=== PATIENT | male | born 1970 | race African-American/Black ===

== ENCOUNTER 2017-04-23 13:05 | Inpatient (IN) | payer OTHER ==
[2017-04-23 13:08] VITALS: BMI 26.1
--- NOTE | 2017-04-23 13:44 | HP ---
CIWA Score - CIWA Score Nausea/Vomitin Muscle Tremors: 3 Anxiety: 3 Agitation: 3 Paroxysmal Sweats: 2 Orientation: 0-Oriented Tacttile Disturbances: 2-Mild Itch/Numbness/Burn Auditory Disturbances: 2-Mild Harshness/Frighten Visual Disturbances: 2-Mild Sensitivity Headache: 0-None Present CIWA-Ar Total Score: 20 Admission ROS [facility] - HPI Chief Complaint: I NEED HELP TO STOP DRINKING ALCOHOL,COCAINE,MARIJUANA,HEROIN ABUSED Allergies/Adverse Reactions: Allergies Allergy/AdvReac Type Severity Reaction Status Date / Time No Known Allergies Allergy Verified 04/23/17 13:20 History of Present Illness: THIS 46 YEARS OLD MALE WITH ALCOHOL,COCAINE,MARIJUANA DEPENDENCE,HEROIN ABUSED, SEEKING DETOX,LAST TREATMENT 02/26 IN [place],NOT COMPLETED MULTIPLE TREATMENT IN THE PAST LOW BACK PAIN DEPRESSION AND INSOMNIA LONGEST PERIOD OF SOBRIETY 13 MONTHS - Ebola screening Have you traveled outside of the country in the last 21 days: No Have you had contact with anyone from an Ebola affected area: No Have you been sick,other than usual withdrawal symptoms: No Do you have a fever: No - Review of Systems Constitutional: Chills, Loss of Appetite, Malaise, Night Sweats, Changes in sleep, Weakness, Unintentional Wgt. Loss EENT: reports: No Symptoms Reported, Nose Congestion Respiratory: reports: No Symptoms reported Cardiac: reports: No Symptoms Reported GI: reports: Nausea, Poor Appetite, Vomiting, Abdominal cramping : reports: No Symptoms Reported Musculoskeletal: reports: Back Pain, Muscle Pain Integumentary: reports: Dryness Neuro: reports: Headache, Tremors Endocrine: reports: No Symptoms Reported Hematology: reports: No Symptoms Reported Psychiatric: reports: No Sypmtoms Reported, Judgement Intact, Mood/Affect Appropiate, Depressed (INSOMNIA) Patient History - Patient Medical History Hx Anemia: No Hx Asthma: No Hx Chronic Obstructive Pulmonary Disease (COPD): No Hx Cancer: No Hx Cardiac Disorders: No Hx Congestive Heart Failure: No Hx Hypertension: No Hx Hypercholesterolemia: No Hx Pacemaker: No HX Cerebrovascular Accident: No Hx Seizures: No Hx Dementia: No Hx Diabetes: No Hx Gastrointestinal Disorders: No Hx Liver Disease: No Hx Genitourinary Disorders: No Hx Sexually Transmitted Disorders: No Hx Renal Disease (ESRD): No Hx Thyroid Disease: No Hx Human Immunodeficiency Virus (HIV): No (LAST 2015 NEGATIVE) Hx Hepatitis C: No Hx Depression: Yes (INSOMNIA) Hx Suicide Attempt: No Hx Bipolar Disorder: No Hx Schizophrenia: No Other Medical History: INSPMNIA,NO SUICIDAL,NO HOMICIDAL - Patient Surgical History Past Surgical History: No Hx Orthopedic Surgery: Yes (FX OF LEFT ANKLE IN 1997) - PPD History Previous Implant?: Yes Documented Results: Negative w/o proof Implanted On Prior [facility] Admission?: No PPD to be Administered?: Yes - Smoking Cessation Smoking history: Current every day smoker Have you smoked in the past 12 months: Yes Aproximately how many cigarettes per day: 10 Hx Chewing Tobacco Use: No Initiated information on smoking cessation: Yes 'Breaking Loose' booklet given: 04/23/17 - Substance & Tx. History Hx Alcohol Use: Yes Hx Substance Use: Yes Substance Use Type: Alcohol, Cocaine, Marijuana Hx Substance Use Treatment: Yes (LAST IN 02/26 IN [place] NOT COMPLETED) - Substances Abused Alcohol Route: Oral Frequency: Daily Amount used: Nilda(1/2-1 pint)beer-3-4 25 oz cans Age of first use: 17 Date of Last Use: 04/23/17 Cocaine Route: Smoking Frequency: Daily Amount used: $40 Age of first use: 23 Date of Last Use: 04/22/17 Marijuana/Hashish Route: Smoking Frequency: 3-6 times per week Amount used: $20 Age of first use: 23 Date of Last Use: 04/22/17 Heroin Route: Inhalation Frequency: 1-3 times last 30 days Amount used: 1 bag Age of first use: 33 Date of Last Use: 04/16/17 Family Disease History - Family Disease History Family History: Denies Admission Physical Exam [facility] - Vital Signs Vital Signs: Vital Signs - 24 hr 04/23/17 13:05 Temperature 97.0 F L Pulse Rate 86 Respiratory 18 Rate Blood Pressure 143/86 - Physical General Appearance: Yes: Moderate Distress, Tremorous, Irritable, Sweating, Anxious HEENTM: Yes: Normal ENT Inspection, MICHELLE, Pharynx Normal, Tm's normal Respiratory: Yes: Lungs Clear, Normal Breath Sounds, No Respiratory Distress Neck: Yes: Within Normal Limits, Supple, Trachea in good position Breast: Yes: Within Normal Limits Cardiology: Yes: Within Normal Limits, Regular Rhythm, Regular Rate, S1, S2 Abdominal: Yes: Within Normal Limits, Normal Bowel Sounds, Non Tender, Flat, Soft Genitourinary: Yes: Within Normal Limits Back: Yes: Within Normal Limits, Muscle Spasm Musculoskeletal: Yes: Back pain, Muscle Pain Extremities: Yes: Tremors Neurological: Yes: hand flesher II-XII NML intact, Alert, Motor Strength 5/5 Integumentary: Yes: Dry Lymphatic: Yes: Within Normal Limits - Diagnostic (1) Alcohol dependence with uncomplicated withdrawal Current Visit: Yes Status: Acute (2) Cocaine dependence Current Visit: Yes Status: Acute Qualifiers: Substance use status: uncomplicated Qualified Code(s): F14.20 - Cocaine dependence, uncomplicated (3) Cannabis dependence Current Visit: Yes Status: Acute (4) Heroin abuse Current Visit: Yes Status: Acute (5) Low back pain Current Visit: Yes Status: Acute Qualifiers: Chronicity: chronic (6) Weight loss Current Visit: Yes Status: Acute (7) Nicotine dependence Current Visit: Yes Status: Acute Qualifiers: Nicotine product type: cigarettes Substance use status: in withdrawal Qualified Code(s): F17.213 - Nicotine dependence, cigarettes, with withdrawal (8) Insomnia secondary to depression with anxiety Current Visit: Yes Status: Acute (9) History of fracture of left ankle Current Visit: Yes Status: Chronic Cleared for Admission [facility] - Detox or Rehab [facility] Level of Care: Medically Managed Detox Regimen/Protocol: Librium [facility] Breath Alcohol Content Breath Alcohol Content: 0.023 Urine Drug Screen - Results Drug Screen Negative: No Urine Drug Screen Results: THC-Marijuana, ALBARO-Cocaine, BZO-Benzodiazepines
[2017-04-23] MEDS ORDERED: P-EPHED 60MG/TRIPROLIDI 2.5MG TABLET PO PRN (13:56)
[2017-04-23] MEDS ORDERED: IBUPROFEN 400 MG TABLET (FP) PO PRN (13:56)
[2017-04-23] MEDS ORDERED: MENTHOL/PHENOL 1 EACH UD MM PRN (13:56)
[2017-04-23] MEDS ORDERED: MAGNESIUM CITRATE 300 ML BOTTLE PO PRN (13:56)
[2017-04-23] MEDS ORDERED: chlordiazePOXIDE HCL 25 MG CAPSULE PO ONE (13:56)
[2017-04-23] MEDS ORDERED: hydrOXYzine PAMOATE 25 MG CAPSULE (FP) PO PRN (13:56)
[2017-04-23] MEDS ORDERED: MAG HYDROX/AL HYDROX/SIMETH 30 ML UNIT-DOSE CUP PO PRN (13:56)
[2017-04-23] MEDS ORDERED: guaiFENesin/D-METHORPHAN HB 10 ML UNIT-DOSE CUPS PO PRN (13:56)
[2017-04-23] MEDS ORDERED: chlordiazePOXIDE HCL 25 MG CAPSULE PO PRN (13:56)
[2017-04-23] MEDS ORDERED: ACETAMINOPHEN 325 MG TABLET (FP) PO PRN (13:56)
[2017-04-23] MEDS ORDERED: MAGNESIUM HYDROX 2400MG/30ML ORAL SUSPENSION 30 ML CUP PO PRN (13:56)
[2017-04-23] MEDS ORDERED: LOPERAMIDE HCL 2 MG CAPSULE PO PRN (13:56)
[2017-04-23] MEDS: NAPROXEN 500 MG TABLET (FP) PO SCH ×2 (14:56→22:15)
--- NOTE | 2017-04-23 15:36 | EKG ---
Test Reason : Blood Pressure : / mmHG Vent. Rate : 088 BPM Atrial Rate : 088 BPM P-R Int : 168 ms QRS Dur : 106 ms QT Int : 386 ms P-R-T Axes : 064 022 051 degrees QTc Int : 467 ms NORMAL SINUS RHYTHM POSSIBLE LEFT ATRIAL ENLARGEMENT BORDERLINE ECG NO PREVIOUS ECGS AVAILABLE Confirmed by KAYLA STUART MD ([id number]) on 04/23/2017 3:35:55 PM Referred By: Confirmed By:KAYLA STUART MD
[2017-04-23 16:28] LABS: URINE APPEARANCE CLEAR; URINE BILIRUBIN NEGATIVE (NEGATIVE); URINE BLOOD NEGATIVE (NEGATIVE); URINE COLOR YELLOW; URINE GLUCOSE (UA) NEGATIVE (NEGATIVE); URINE KETONE NEGATIVE (NEGATIVE); URINE NITRITE NEGATIVE (NEGATIVE); URINE PROTEIN NEGATIVE (NEGATIVE); URINE UROBILINOGEN NEGATIVE mg/dL (0.2-1.0)
[2017-04-23] MEDS: chlordiazePOXIDE HCL 25 MG CAPSULE PO SCH ×2 (17:32→22:15)
[2017-04-23 19:01] LABS: URINE LEUK ESTERASE Negative (NEGATIVE)
[2017-04-23] MEDS: THIAMINE HCL 100 MG TABLET (FP) PO SCH (22:14)
[2017-04-23] MEDS: cloNIDine HCL 0.1 MG TABLET PO SCH (22:15)
[2017-04-24] MEDS: chlordiazePOXIDE HCL 25 MG CAPSULE PO SCH ×4 (07:31→22:33)
[2017-04-24 09:56] LABS: MCH 29.3 pg (25.7-33.7); MCHC 32.9 g/dl (32.0-35.9); MEAN PLT VOLUME 10.5 fl (7.5-11.1); PLATELET COUNT 171 K/MM3 (134-434); RDW 14.3 % (11.9-15.9); WHITE BLOOD COUNT 5.6 K/mm3 (4.0-10.0)
[2017-04-24 10:23] LABS: ALBUMIN 3.5 g/dl (3.4-5.0); ALK PHOS 63 U/L (45-117); ANION GAP 7 (8-16); BILIRUBIN,TOTAL 0.7 mg/dL (0.2-1.0); CALCIUM 8.5 mg/dL (8.5-10.1); CO2 28 mmol/L (21-32); GLUCOSE,RANDOM 98 mg/dL (74-106); SGOT/AST 16 U/L (15-37); SGPT/ALT 26 U/L (12-78); TOT PROT 6.2 g/dl (6.4-8.2)
[2017-04-24] MEDS: cloNIDine HCL 0.1 MG TABLET PO SCH ×2 (10:23→22:33)
[2017-04-24] MEDS: NAPROXEN 500 MG TABLET (FP) PO SCH ×2 (10:23→22:32)
[2017-04-24] MEDS: PRENATAL VITAMINS W/ FOLIC ACID TABLET (FP) PO SCH (10:23)
[2017-04-24 11:16] LABS: HIV 1 & 2 AB NEGATIVE; HIV 1 AGp24 NEGATIVE
--- NOTE | 2017-04-24 11:17 | PN ---
[facility] CIWA - CIWA Score Nausea/Vomitin-No Nausea/No Vomiting Muscle Tremors: 4-Moderate,w/Arms Extend Anxiety: 4-Mod. Anxious/Guarded Agitation: 4-Moderately Restless Paroxysmal Sweats: 1-Minimal Palms Moist Orientation: 0-Oriented Tacttile Disturbances: 3-Moderate Itch/Numb/Burn Auditory Disturbances: 0-None Visual Disturbances: 0-None Headache: 0-None Present CIWA-Ar Total Score: 16 BHS Progress Note (SOAP) Subjective: ANXIETY,SWEATS,FATIGUE. Objective: 04/24/17 11:17 Vital Signs Temperature 96.7 F L 04/24/17 09:22 Pulse Rate 75 04/24/17 09:22 Respiratory Rate 18 04/24/17 09:22 Blood Pressure 114/72 04/24/17 09:22 O2 Sat by Pulse Oximetry (%) Laboratory Last Values WBC 5.6 K/mm3 (4.0-10.0) 04/24/17 07:00 RBC 4.93 M/mm3 (4.00-5.60) 04/24/17 07:00 Hgb 14.5 GM/dL (11.7-16.9) 04/24/17 07:00 Hct 43.9 % (35.4-49) 04/24/17 07:00 MCV 89.0 fl (80-96) 04/24/17 07:00 MCH 29.3 pg (25.7-33.7) 04/24/17 07:00 MCHC 32.9 g/dl (32.0-35.9) 04/24/17 07:00 RDW 14.3 % (11.9-15.9) 04/24/17 07:00 Plt Count 171 K/MM3 (134-434) 04/24/17 07:00 MPV 10.5 fl (7.5-11.1) 04/24/17 07:00 Sodium 140 mmol/L (136-145) 04/24/17 07:00 Potassium 4.3 mmol/L (3.5-5.1) 04/24/17 07:00 Chloride 105 mmol/L (98-107) 04/24/17 07:00 Carbon Dioxide 28 mmol/L (21-32) 04/24/17 07:00 Anion Gap 7 (8-16) L 04/24/17 07:00 BUN 19 mg/dL (7-18) H 04/24/17 07:00 Creatinine 1.0 mg/dL (0.7-1.3) 04/24/17 07:00 Creat Clearance w eGFR > 60 (>60) 04/24/17 07:00 Random Glucose 98 mg/dL (74-106) 04/24/17 07:00 Calcium 8.5 mg/dL (8.5-10.1) 04/24/17 07:00 Total Bilirubin 0.7 mg/dL (0.2-1.0) 04/24/17 07:00 AST 16 U/L (15-37) 04/24/17 07:00 ALT 26 U/L (12-78) 04/24/17 07:00 Alkaline Phosphatase 63 U/L (45-117) 04/24/17 07:00 Total Protein 6.2 g/dl (6.4-8.2) L 04/24/17 07:00 Albumin 3.5 g/dl (3.4-5.0) 04/24/17 07:00 Urine Color Yellow 04/23/17 15:30 Urine Appearance Clear 04/23/17 15:30 Urine pH 5.0 (5.0-8.0) 04/23/17 15:30 Ur Specific [place] 1.024 (1.001-1.035) 04/23/17 15:30 Urine Protein Negative (NEGATIVE) 04/23/17 15:30 Urine Glucose (UA) Negative (NEGATIVE) 04/23/17 15:30 Urine Ketones Negative (NEGATIVE) 04/23/17 15:30 Urine Blood Negative (NEGATIVE) 04/23/17 15:30 Urine Nitrite Negative (NEGATIVE) 04/23/17 15:30 Urine Bilirubin Negative (NEGATIVE) 04/23/17 15:30 Urine Urobilinogen Negative mg/dL (0.2-1.0) 04/23/17 15:30 Ur Leukocyte Esterase Negative (NEGATIVE) 04/23/17 15:30 RPR Titer Nonreactive (NONREACTIVE) 04/24/17 07:00 HIV 1&2 Antibody Screen Negative 04/24/17 07:00 HIV P24 Antigen Negative 04/24/17 07:00 Assessment: 04/24/17 11:17 WITHDRAWAL SX Plan: CONTINUE DETOX
--- NOTE | 2017-04-24 12:00 | CONSULT ---
[facility] Psychiatric Consult - Data Date of interview: 04/24/17 Admission source: [facility] Identifying data: Visited at bedside,on three occasions by this communications writer,for psychiatric interview.Patient REFUSED.
[2017-04-24] MEDS: THIAMINE HCL 100 MG TABLET (FP) PO SCH (22:32)
[2017-04-25] MEDS: CYCLOBENZAPRINE HCL 10 MG TABLET (FP) PO PRN ×2 (05:45→17:47)
[2017-04-25] MEDS: chlordiazePOXIDE HCL 25 MG CAPSULE PO SCH ×2 (05:45→10:11)
[2017-04-25] MEDS: cloNIDine HCL 0.1 MG TABLET PO SCH ×2 (10:10→22:21)
[2017-04-25] MEDS: NAPROXEN 500 MG TABLET (FP) PO SCH ×2 (10:11→22:21)
[2017-04-25] MEDS: PRENATAL VITAMINS W/ FOLIC ACID TABLET (FP) PO SCH (10:11)
--- NOTE | 2017-04-25 11:59 | PN ---
[facility] CIWA - CIWA Score Nausea/Vomitin-No Nausea/No Vomiting Muscle Tremors: 3 Anxiety: 4-Mod. Anxious/Guarded Agitation: 3 Paroxysmal Sweats: 3 Orientation: 0-Oriented Tacttile Disturbances: 2-Mild Itch/Numbness/Burn Auditory Disturbances: 0-None Visual Disturbances: 2-Mild Sensitivity Headache: 0-None Present CIWA-Ar Total Score: 17 S Progress Note (SOAP) Subjective: Tremors, Fatigue, Sweating, Body Aches. Objective: PT. A & O X 3, OBSERVED AMBULATING ON UNIT. NO ACUTE DISTRESS. 04/25/17 11:57 Vital Signs Temperature 95.3 F L 04/25/17 09:17 Pulse Rate 73 04/25/17 09:17 Respiratory Rate 18 04/25/17 09:17 Blood Pressure 111/74 04/25/17 09:17 O2 Sat by Pulse Oximetry (%) Laboratory Tests 04/23/17 04/24/17 04/24/17 15:30 07:00 07:00 WBC 5.6 RBC 4.93 Hgb 14.5 Hct 43.9 MCV 89.0 MCH 29.3 MCHC 32.9 RDW 14.3 Plt Count 171 MPV 10.5 Sodium Potassium Chloride Carbon Dioxide Anion Gap BUN Creatinine Creat Clearance w eGFR Random Glucose Calcium Total Bilirubin AST ALT Alkaline Phosphatase Total Protein Albumin Urine Color Yellow Urine Appearance Clear Urine pH 5.0 Ur Specific [place] 1.024 Urine Protein Negative Urine Glucose (UA) Negative Urine Ketones Negative Urine Blood Negative Urine Nitrite Negative Urine Bilirubin Negative Urine Urobilinogen Negative Ur Leukocyte Esterase Negative RPR Titer HIV 1&2 Antibody Screen Negative HIV P24 Antigen Negative 04/24/17 04/24/17 07:00 07:00 WBC RBC Hgb Hct MCV MCH MCHC RDW Plt Count MPV Sodium 140 Potassium 4.3 Chloride 105 Carbon Dioxide 28 Anion Gap 7 L BUN 19 H Creatinine 1.0 Creat Clearance w eGFR > 60 Random Glucose 98 Calcium 8.5 Total Bilirubin 0.7 AST 16 ALT 26 Alkaline Phosphatase 63 Total Protein 6.2 L Albumin 3.5 Urine Color Urine Appearance Urine pH Ur Specific [place] Urine Protein Urine Glucose (UA) Urine Ketones Urine Blood Urine Nitrite Urine Bilirubin Urine Urobilinogen Ur Leukocyte Esterase RPR Titer Nonreactive HIV 1&2 Antibody Screen HIV P24 Antigen LABS NOTED. Assessment: 04/25/17 11:58 WITHDRAWAL SYMPTOMS. Plan: CONTINUE DETOX. INCREASE DAILY PO FLUID INTAKE.
[2017-04-25] MEDS: chlordiazePOXIDE 5 MG CAPSULE PO SCH ×3 (17:29→22:21)
[2017-04-25] MEDS: THIAMINE HCL 100 MG TABLET (FP) PO SCH (22:21)
[2017-04-26] MEDS: chlordiazePOXIDE 5 MG CAPSULE PO SCH ×2 (06:00→10:40)
[2017-04-26] MEDS: NAPROXEN 500 MG TABLET (FP) PO SCH ×2 (10:40→22:08)
[2017-04-26] MEDS: cloNIDine HCL 0.1 MG TABLET PO SCH ×2 (10:40→22:08)
[2017-04-26] MEDS: PRENATAL VITAMINS W/ FOLIC ACID TABLET (FP) PO SCH (10:40)
--- NOTE | 2017-04-26 10:41 | PN ---
[facility] Progress Note (SOAP) Subjective: Tremors, Body Aches, Sweating. Objective: PT. A & O X 3, OBSERVED AMBULATING ON UNIT. NO ACUTE DISTRESS. 04/26/17 10:38 Vital Signs Temperature 97.0 F L 04/26/17 09:26 Pulse Rate 80 04/26/17 09:26 Respiratory Rate 20 04/26/17 09:26 Blood Pressure 130/72 04/26/17 09:26 O2 Sat by Pulse Oximetry (%) Laboratory Tests 04/23/17 04/24/17 04/24/17 15:30 07:00 07:00 WBC 5.6 RBC 4.93 Hgb 14.5 Hct 43.9 MCV 89.0 MCH 29.3 MCHC 32.9 RDW 14.3 Plt Count 171 MPV 10.5 Sodium Potassium Chloride Carbon Dioxide Anion Gap BUN Creatinine Creat Clearance w eGFR Random Glucose Calcium Total Bilirubin AST ALT Alkaline Phosphatase Total Protein Albumin Urine Color Yellow Urine Appearance Clear Urine pH 5.0 Ur Specific [place] 1.024 Urine Protein Negative Urine Glucose (UA) Negative Urine Ketones Negative Urine Blood Negative Urine Nitrite Negative Urine Bilirubin Negative Urine Urobilinogen Negative Ur Leukocyte Esterase Negative RPR Titer HIV 1&2 Antibody Screen Negative HIV P24 Antigen Negative 04/24/17 04/24/17 07:00 07:00 WBC RBC Hgb Hct MCV MCH MCHC RDW Plt Count MPV Sodium 140 Potassium 4.3 Chloride 105 Carbon Dioxide 28 Anion Gap 7 L BUN 19 H Creatinine 1.0 Creat Clearance w eGFR > 60 Random Glucose 98 Calcium 8.5 Total Bilirubin 0.7 AST 16 ALT 26 Alkaline Phosphatase 63 Total Protein 6.2 L Albumin 3.5 Urine Color Urine Appearance Urine pH Ur Specific [place] Urine Protein Urine Glucose (UA) Urine Ketones Urine Blood Urine Nitrite Urine Bilirubin Urine Urobilinogen Ur Leukocyte Esterase RPR Titer Nonreactive HIV 1&2 Antibody Screen HIV P24 Antigen LABS NOTED. Assessment: 04/26/17 10:39 WITHDRAWAL SYMPTOMS. Plan: CONTINUE DETOX. INCREASE DAILY PO FLUID INTAKE. ENCOURAGE AMBULATION. LIDODERM PATCH FOR LOWER BACK PAIN.
[2017-04-26] MEDS ORDERED: LIDOCAINE 5% TOPICAL PATCH TP ONE (10:58)
[2017-04-26] MEDS: chlordiazePOXIDE HCL 10 MG CAPSULE PO SCH ×2 (17:41→22:08)
[2017-04-26] MEDS ORDERED: LIDOCAINE PATCH REMOVAL MC SCH (22:00)
[2017-04-26] MEDS: THIAMINE HCL 100 MG TABLET (FP) PO SCH (22:08)
[2017-04-27] MEDS: chlordiazePOXIDE HCL 10 MG CAPSULE PO SCH (05:42)
[2017-04-27 06:24] VITALS: BP 110/62; PULSE 65; TEMP 97
--- NOTE | 2017-04-27 19:53 | DS ---
[facility] Detox Discharge Summary Admission Date: 04/23/17 Discharge Date: 04/27/17 - History Present History: Alcohol Dependence, Cannabis Dependence, Cocaine Dependence Additional Comments: PATIENT ADVISED TO CONSIDER LOCAL 12-STEP / NA / AA OUTPATIENT SUPPORT GROUPS FOR AFTERCARE. PATIENT WAS DISCHARGED FROM DETOX UNIT IN STABLE MEDICAL CONDITION. Pertinent Past History: Depression, Insomnia, History of Fracture of Left Ankle, Low Back Pain, Insomnia , Nicotine Dependence. - Physical Exam Results Vital Signs: Vital Signs Temperature 97 F L 04/27/17 06:24 Pulse Rate 65 04/27/17 06:24 Respiratory Rate 18 04/27/17 06:24 Blood Pressure 110/62 04/27/17 06:24 O2 Sat by Pulse Oximetry (%) Pertinent Admission Physical Exam Findings: WITHDRAWAL SYMPTOMS. Laboratory Tests 04/23/17 04/24/17 04/24/17 15:30 07:00 07:00 WBC 5.6 RBC 4.93 Hgb 14.5 Hct 43.9 MCV 89.0 MCH 29.3 MCHC 32.9 RDW 14.3 Plt Count 171 MPV 10.5 Sodium Potassium Chloride Carbon Dioxide Anion Gap BUN Creatinine Creat Clearance w eGFR Random Glucose Calcium Total Bilirubin AST ALT Alkaline Phosphatase Total Protein Albumin Urine Color Yellow Urine Appearance Clear Urine pH 5.0 Ur Specific [place] 1.024 Urine Protein Negative Urine Glucose (UA) Negative Urine Ketones Negative Urine Blood Negative Urine Nitrite Negative Urine Bilirubin Negative Urine Urobilinogen Negative Ur Leukocyte Esterase Negative RPR Titer HIV 1&2 Antibody Screen Negative HIV P24 Antigen Negative 04/24/17 04/24/17 07:00 07:00 WBC RBC Hgb Hct MCV MCH MCHC RDW Plt Count MPV Sodium 140 Potassium 4.3 Chloride 105 Carbon Dioxide 28 Anion Gap 7 L BUN 19 H Creatinine 1.0 Creat Clearance w eGFR > 60 Random Glucose 98 Calcium 8.5 Total Bilirubin 0.7 AST 16 ALT 26 Alkaline Phosphatase 63 Total Protein 6.2 L Albumin 3.5 Urine Color Urine Appearance Urine pH Ur Specific [place] Urine Protein Urine Glucose (UA) Urine Ketones Urine Blood Urine Nitrite Urine Bilirubin Urine Urobilinogen Ur Leukocyte Esterase RPR Titer Nonreactive HIV 1&2 Antibody Screen HIV P24 Antigen LABS NOTED. - Treatment Hospital Course: Detox Protocol Followed, Detoxed Safely, Responded well, Discharged Condition Good Patient has Accepted a Rehab Referral to: NO. PT ADVISED TO CONSIDER LOCAL 12- STEP/NA/AA SUPPORT GROUPS FOR AFTERCARE - Diagnosis (1) Alcohol dependence with uncomplicated withdrawal Status: Acute (2) Cannabis dependence Status: Acute (3) Cocaine dependence Status: Acute Qualifiers: Substance use status: uncomplicated Qualified Code(s): F14.20 - Cocaine dependence, uncomplicated (4) Heroin abuse Status: Acute (5) Insomnia secondary to depression with anxiety Status: Acute (6) Low back pain Status: Acute Qualifiers: Chronicity: chronic Back pain laterality: unspecified Sciatica presence: unspecified whether sciatica present Qualified Code(s): M54.5 - Low back pain ; G89.29 - Other chronic pain; G89.29 - Other chronic pain (7) Nicotine dependence Status: Acute Qualifiers: Nicotine product type: cigarettes Substance use status: in withdrawal Qualified Code(s): F17.213 - Nicotine dependence, cigarettes, with withdrawal (8) Weight loss Status: Acute (9) History of fracture of left ankle Status: Chronic - AMA Did Patient Leave Against Medical Advice: No
== END 2017-04-27 10:05 | disposition home or self-care (01) | DRG 773 ==
LOC: YASAS 13:05 → Y3N 13:54
PROVIDERS: ADMIT Internal Medicine; ATTEND Internal Medicine
PROC: HZ2ZZZZ Detoxification Services for Substance Abuse Treatment (ICD-10-PCS; principal; 2017-04-23)
DX: F10.230 Alcohol dependence with withdrawal, uncomplicated (principal); F14.20 Cocaine dependence, uncomplicated; F12.20 Cannabis dependence, uncomplicated; F11.10 Opioid abuse, uncomplicated; F17.213 Nicotine dependence, cigarettes, with withdrawal; F51.05 Insomnia due to other mental disorder; M54.5 Low back pain; G89.29 Other chronic pain; Z87.898 Personal history of other specified conditions; Z87.81 Personal history of (healed) traumatic fracture
CPT/HCPCS: 36415; 80053; 81003; 85027; 86593; 87389; 93005; 93010

== ENCOUNTER 2023-02-26 08:44 | Inpatient (IN) | payer OTHER ==
[2023-02-26 09:34] VITALS: BMI 26.5
[2023-02-26] MEDS ORDERED: POLYETHYLENE GLYCOL (HEALTHYLAX) 3350 17 GM PACKET PO PRN (11:42)
[2023-02-26] MEDS ORDERED: DICYCLOMINE HCL 10 MG CAPSULE PO PRN (11:42)
[2023-02-26] MEDS ORDERED: BENZOCAINE/MENTHOL (CHLORASEPTIC ) LOZENGE MM PRN (11:42)
[2023-02-26] MEDS ORDERED: LOPERAMIDE HCL 2 MG CAPSULE PO PRN (11:42)
[2023-02-26] MEDS ORDERED: IBUPROFEN 400 MG TABLET (FP) PO PRN (11:42)
[2023-02-26] MEDS ORDERED: BISMUTH SUBSALICYLATE 524 MG/30 ML PO PRN (11:42)
[2023-02-26] MEDS ORDERED: MAGNESIUM HYDROX 2400MG/30ML ORAL SUSPENSION 30 ML CUP PO PRN (11:42)
[2023-02-26] MEDS ORDERED: IBUPROFEN 600 MG TABLET (FP) PO PRN (11:42)
[2023-02-26] MEDS ORDERED: guaiFENesin 600 MG TABLET.ER (FP) PO PRN (11:42)
[2023-02-26] MEDS ORDERED: BENZONATATE 200 MG CAPSULE PO PRN (11:42)
[2023-02-26] MEDS ORDERED: MAG HYDROX/AL HYDROX/SIMETH 30 ML UNIT-DOSE CUP PO PRN (11:42)
[2023-02-26] MEDS ORDERED: NALOXONE HCL 0.4 MG/ML VIAL IM PRN (11:42)
[2023-02-26] MEDS ORDERED: NALOXONE HCL (KLOXXADO) 8 MG SPRAY NS PRN (11:42)
[2023-02-26] MEDS ORDERED: ONDANSETRON *ODT* 4 MG TABLET SL PRN (11:42)
[2023-02-26] MEDS ORDERED: ACETAMINOPHEN 325 MG TABLET (FP) PO PRN (11:42)
[2023-02-26] MEDS ORDERED: hydrOXYzine PAMOATE 25 MG CAPSULE (FP) PO PRN (11:42)
[2023-02-26] MEDS: diazePAM 5 MG TABLET PO PRN (12:00)
[2023-02-26] MEDS: METHOCARBAMOL 500 MG TABLET PO PRN ×2 (12:00→22:19)
[2023-02-26] MEDS ORDERED: diazePAM 5 MG TABLET ONE (12:21)
[2023-02-26] MEDS ORDERED: METHOCARBAMOL 500 MG TABLET ONE (12:22)
[2023-02-26] MEDS: diazePAM 5 MG TABLET PO SCH ×2 (17:33→22:19)
[2023-02-26] MEDS: MELATONIN 5 MG TABLETS PO SCH (22:18)
[2023-02-26] MEDS: THIAMINE HCL 100 MG TABLET (FP) PO SCH (22:19)
[2023-02-27] MEDS: diazePAM 5 MG TABLET PO SCH ×4 (05:55→23:23)
[2023-02-27] MEDS: PRENATAL VITAMINS W/ FOLIC ACID TABLET (FP) PO SCH (10:40)
[2023-02-27 12:27] LABS: HEMATOCRIT 43.5 % (35.4-49); HEMOGLOBIN 14.8 GM/dL (11.7-16.9); MCH 30.5 pg (25.7-33.7); MCHC 33.9 g/dl (32.0-35.9); MEAN PLT VOLUME 10.7 fl (7.5-11.1); PLATELET COUNT 177 10^3/uL (134-434); RBC 4.84 M/mm3 (4.00-5.60); RDW 14.5 % (11.9-15.9); WHITE BLOOD COUNT 6.4 K/mm3 (4.0-10.0)
[2023-02-27 12:45] LABS: CALCIUM 8.8 mg/dL (8.5-10.1)
[2023-02-27 12:46] LABS: ALBUMIN 3.3 g/dl (3.4-5.0); BLOOD UREA NITROGEN 16.9 mg/dL (7-18)
[2023-02-27 12:49] LABS: CREATININE 1.1 mg/dL (0.55-1.3)
[2023-02-27 12:51] LABS: BILIRUBIN,TOTAL 0.4 mg/dL (0.2-1); TOT PROT 6.2 g/dl (6.4-8.2)
[2023-02-27] MEDS: diazePAM 5 MG TABLET PO PRN (18:53)
[2023-02-27] MEDS: METHOCARBAMOL 500 MG TABLET PO PRN (18:54)
[2023-02-27] MEDS: MELATONIN 5 MG TABLETS PO SCH (23:23)
[2023-02-27] MEDS: THIAMINE HCL 100 MG TABLET (FP) PO SCH (23:23)
[2023-02-28] MEDS: diazePAM 5 MG TABLET PO SCH ×3 (05:50→23:13)
[2023-02-28] MEDS: PRENATAL VITAMINS W/ FOLIC ACID TABLET (FP) PO SCH (10:46)
[2023-02-28] MEDS: METHOCARBAMOL 500 MG TABLET PO PRN (10:50)
[2023-02-28] MEDS: diazePAM 5 MG TABLET PO PRN (10:51)
[2023-02-28] MEDS: MELATONIN 5 MG TABLETS PO SCH (23:12)
[2023-02-28] MEDS: THIAMINE HCL 100 MG TABLET (FP) PO SCH (23:13)
[2023-03-01] MEDS: diazePAM 5 MG TABLET PO SCH ×2 (05:57→17:33)
[2023-03-01] MEDS: PRENATAL VITAMINS W/ FOLIC ACID TABLET (FP) PO SCH (11:13)
[2023-03-01] MEDS: amLODIPine BESYLATE 5 MG TABLET (FP) PO SCH (14:35)
[2023-03-01 16:49] VITALS: RESP 18
[2023-03-01] MEDS: THIAMINE HCL 100 MG TABLET (FP) PO SCH (22:45)
[2023-03-01] MEDS: MELATONIN 5 MG TABLETS PO SCH (22:45)
[2023-03-02] MEDS: MELATONIN 5 MG TABLETS PO SCH
[2023-03-02] MEDS ORDERED: diazePAM 5 MG TABLET PO ONE (06:00)
[2023-03-02 06:42] VITALS: BP 125/75; PULSE 70; TEMP 97.8
[2023-03-02] MEDS: PRENATAL VITAMINS W/ FOLIC ACID TABLET (FP) PO SCH (10:47)
[2023-03-02] MEDS: amLODIPine BESYLATE 5 MG TABLET (FP) PO SCH (10:47)
== END 2023-03-02 10:05 | disposition home or self-care (01) | DRG 774 ==
LOC: YASAS 08:44 → Y6N 11:54
PROVIDERS: ADMIT Allergy & Immunology; ATTEND Surgery
PROC: HZ2ZZZZ Detoxification Services for Substance Abuse Treatment (ICD-10-PCS; principal; 2023-02-26)
DX: F10.230 Alcohol dependence with withdrawal, uncomplicated (principal); F14.20 Cocaine dependence, uncomplicated; F12.20 Cannabis dependence, uncomplicated; F17.213 Nicotine dependence, cigarettes, with withdrawal; I10 Essential (primary) hypertension; M54.6 Pain in thoracic spine; G89.29 Other chronic pain; Z86.69 Personal history of other diseases of the nervous system and sense organs
CPT/HCPCS: 36415; 80053; 85027; 86780; 87635

== ENCOUNTER 2023-04-22 12:34 | Inpatient (IN) | payer OTHER ==
[2023-04-22 14:20] VITALS: BMI 26.1
[2023-04-22] MEDS ORDERED: POLYETHYLENE GLYCOL (HEALTHYLAX) 3350 17 GM PACKET PO PRN (16:43)
[2023-04-22] MEDS ORDERED: ONDANSETRON *ODT* 4 MG TABLET SL PRN (16:43)
[2023-04-22] MEDS ORDERED: IBUPROFEN 400 MG TABLET (FP) PO PRN (16:43)
[2023-04-22] MEDS ORDERED: LOPERAMIDE HCL 2 MG CAPSULE PO PRN (16:43)
[2023-04-22] MEDS ORDERED: BENZOCAINE/MENTHOL (CHLORASEPTIC ) LOZENGE MM PRN (16:43)
[2023-04-22] MEDS ORDERED: MAG HYDROX/AL HYDROX/SIMETH 30 ML UNIT-DOSE CUP PO PRN (16:43)
[2023-04-22] MEDS ORDERED: BISMUTH SUBSALICYLATE 524 MG/30 ML PO PRN (16:43)
[2023-04-22] MEDS ORDERED: IBUPROFEN 600 MG TABLET (FP) PO PRN (16:43)
[2023-04-22] MEDS ORDERED: MAGNESIUM HYDROX 2400MG/30ML ORAL SUSPENSION 30 ML CUP PO PRN (16:43)
[2023-04-22] MEDS ORDERED: guaiFENesin 600 MG TABLET.ER (FP) PO PRN (16:43)
[2023-04-22] MEDS ORDERED: ACETAMINOPHEN 325 MG TABLET (FP) PO PRN (16:43)
[2023-04-22] MEDS ORDERED: hydrOXYzine PAMOATE 25 MG CAPSULE (FP) PO PRN (16:43)
[2023-04-22] MEDS ORDERED: DICYCLOMINE HCL 10 MG CAPSULE PO PRN (16:43)
[2023-04-22] MEDS ORDERED: NICOTINE POLACRILEX 2 MG GUM BUC PRN (16:43)
[2023-04-22] MEDS ORDERED: NALOXONE HCL 0.4 MG/ML VIAL IM PRN (16:43)
[2023-04-22] MEDS ORDERED: BENZONATATE 200 MG CAPSULE PO PRN (16:43)
[2023-04-22] MEDS ORDERED: NALOXONE HCL (KLOXXADO) 8 MG SPRAY NS PRN (16:43)
[2023-04-22] MEDS ORDERED: METHOCARBAMOL 500 MG TABLET PO PRN (16:43)
[2023-04-22] MEDS: THIAMINE HCL 100 MG TABLET (FP) PO SCH (22:37)
[2023-04-22] MEDS: MELATONIN 5 MG TABLETS PO SCH (22:37)
[2023-04-23 10:25] LABS: HEMATOCRIT 47.1 % (35.4-49); HEMOGLOBIN 15.7 GM/dL (11.7-16.9); MCH 29.7 pg (25.7-33.7); MCHC 33.3 g/dl (32.0-35.9); MEAN CELL VOLUME 89.4 fl (80-96); MEAN PLT VOLUME 10.1 fl (7.5-11.1); PLATELET COUNT 204 10^3/uL (134-434); RBC 5.27 M/mm3 (4.00-5.60); RDW 14.3 % (11.9-15.9); WHITE BLOOD COUNT 6.3 K/mm3 (4.0-10.0)
[2023-04-23] MEDS: amLODIPine BESYLATE 5 MG TABLET (FP) PO SCH (10:42)
[2023-04-23] MEDS: PRENATAL VITAMINS W/ FOLIC ACID TABLET (FP) PO SCH (10:42)
[2023-04-23] MEDS: NICOTINE 14 MG/24 HOURS TOPICAL PATCH TD SCH (10:42)
[2023-04-23] MEDS: MELATONIN 5 MG TABLETS PO SCH (22:14)
[2023-04-23] MEDS: THIAMINE HCL 100 MG TABLET (FP) PO SCH (22:15)
[2023-04-24] MEDS: amLODIPine BESYLATE 5 MG TABLET (FP) PO SCH (10:57)
[2023-04-24] MEDS: PRENATAL VITAMINS W/ FOLIC ACID TABLET (FP) PO SCH (10:57)
[2023-04-24] MEDS: NICOTINE 14 MG/24 HOURS TOPICAL PATCH TD SCH (10:57)
[2023-04-24 13:06] VITALS: BP 140/85; PULSE 59; RESP 19; TEMP 98.4
== END 2023-04-24 15:30 | disposition home or self-care (01) | DRG 774 ==
LOC: YASAS 12:34 → UNDOADMIN 16:43 → Y6N 16:43
PROVIDERS: ADMIT Allergy & Immunology; ATTEND Surgery
PROC: HZ2ZZZZ Detoxification Services for Substance Abuse Treatment (ICD-10-PCS; principal; 2023-04-22)
DX: F10.20 Alcohol dependence, uncomplicated (principal); F14.20 Cocaine dependence, uncomplicated; F17.210 Nicotine dependence, cigarettes, uncomplicated; F41.9 Anxiety disorder, unspecified; I10 Essential (primary) hypertension; M54.50 Low back pain, unspecified; G89.29 Other chronic pain; Z86.69 Personal history of other diseases of the nervous system and sense organs
CPT/HCPCS: 36415; 85027; 86780; 87635

== ENCOUNTER 2023-05-18 10:38 | Inpatient (IN) | payer OTHER ==
[2023-05-18 11:00] VITALS: BMI 27.2
[2023-05-18] MEDS ORDERED: POLYETHYLENE GLYCOL (HEALTHYLAX) 3350 17 GM PACKET PO PRN (13:37)
[2023-05-18] MEDS ORDERED: IBUPROFEN 600 MG TABLET (FP) PO PRN (13:37)
[2023-05-18] MEDS ORDERED: MAG HYDROX/AL HYDROX/SIMETH 30 ML UNIT-DOSE CUP PO PRN (13:37)
[2023-05-18] MEDS ORDERED: IBUPROFEN 400 MG TABLET (FP) PO PRN (13:37)
[2023-05-18] MEDS ORDERED: MAGNESIUM HYDROX 2400MG/30ML ORAL SUSPENSION 30 ML CUP PO PRN (13:37)
[2023-05-18] MEDS ORDERED: COLLOIDAL OATMEAL 1 BAR EACH TP PRN (13:37)
[2023-05-18] MEDS ORDERED: LOPERAMIDE HCL 2 MG CAPSULE PO PRN (13:37)
[2023-05-18] MEDS ORDERED: guaiFENesin 600 MG TABLET.ER (FP) PO PRN (13:37)
[2023-05-18] MEDS ORDERED: BENZONATATE 200 MG CAPSULE PO PRN (13:37)
[2023-05-18] MEDS ORDERED: BENZOCAINE/MENTHOL (CHLORASEPTIC ) LOZENGE MM PRN (13:37)
[2023-05-18] MEDS ORDERED: ACETAMINOPHEN 325 MG TABLET (FP) PO PRN (13:37)
[2023-05-18] MEDS ORDERED: hydrOXYzine PAMOATE 25 MG CAPSULE (FP) PO PRN (13:37)
[2023-05-18] MEDS: MELATONIN 5 MG TABLETS PO SCH (22:06)
[2023-05-18] MEDS: THIAMINE HCL 100 MG TABLET (FP) PO SCH (22:06)
[2023-05-19] MEDS: PRENATAL VITAMINS W/ FOLIC ACID TABLET (FP) PO SCH (09:55)
[2023-05-19 10:35] LABS: HEMATOCRIT 48.5 % (35.4-49); HEMOGLOBIN 16.4 GM/dL (11.7-16.9); MCH 30.5 pg (25.7-33.7); MCHC 33.8 g/dl (32.0-35.9); MEAN CELL VOLUME 90.4 fl (80-96); MEAN PLT VOLUME 10.3 fl (7.5-11.1); PLATELET COUNT 246 10^3/uL (134-434); RBC 5.36 M/mm3 (4.00-5.60); RDW 14.6 % (11.9-15.9); WHITE BLOOD COUNT 8.4 K/mm3 (4.0-10.0)
[2023-05-19 10:40] LABS: CALCIUM 10.4 mg/dL (8.5-10.1)
[2023-05-19 10:41] LABS: ALBUMIN 4.1 g/dl (3.4-5.0); BLOOD UREA NITROGEN 14.5 mg/dL (7-18)
[2023-05-19 10:44] LABS: CREATININE 1.2 mg/dL (0.55-1.3)
[2023-05-19 10:46] LABS: BILIRUBIN,TOTAL 1.2 mg/dL (0.2-1); TOT PROT 7.6 g/dl (6.4-8.2)
[2023-05-19] MEDS ORDERED: FLU VACCINE (FLULAVAL) PF 60 MCG/0.5 ML SYRINGE 2023-2024 IM ONE (12:00)
[2023-05-19 14:15] LABS: URINE APPEARANCE CLEAR; URINE BILIRUBIN NEGATIVE (NEGATIVE); URINE COLOR YELLOW; URINE GLUCOSE (UA) NEGATIVE (NEGATIVE); URINE KETONE TRACE (NEGATIVE); URINE LEUK ESTERASE NEGATIVE (NEGATIVE); URINE NITRITE NEGATIVE (NEGATIVE); URINE PROTEIN NEGATIVE (NEGATIVE)
[2023-05-19 16:25] LABS: SYPHILIS W/ RPR CONF NON-REACTIVE (NONREACTIVE)
[2023-05-19 16:51] LABS: HIV INTERPRETATION NEGATIVE (NEGATIVE)
[2023-05-19] MEDS: MELATONIN 5 MG TABLETS PO SCH (22:40)
[2023-05-19] MEDS: THIAMINE HCL 100 MG TABLET (FP) PO SCH (22:40)
[2023-05-20] MEDS: PRENATAL VITAMINS W/ FOLIC ACID TABLET (FP) PO SCH (10:03)
[2023-05-20] MEDS: MELATONIN 5 MG TABLETS PO SCH (22:06)
[2023-05-20] MEDS: THIAMINE HCL 100 MG TABLET (FP) PO SCH (22:06)
[2023-05-21 07:02] VITALS: RESP 18; TEMP 97.2
[2023-05-21] MEDS: PRENATAL VITAMINS W/ FOLIC ACID TABLET (FP) PO SCH (10:00)
[2023-05-21] MEDS: MELATONIN 5 MG TABLETS PO SCH (22:45)
[2023-05-21] MEDS: THIAMINE HCL 100 MG TABLET (FP) PO SCH (22:45)
[2023-05-22 07:38] VITALS: BP 128/82; PULSE 76
[2023-05-22] MEDS: PRENATAL VITAMINS W/ FOLIC ACID TABLET (FP) PO SCH (09:20)
== END 2023-05-22 09:22 | disposition home or self-care (01) | DRG 772 ==
LOC: YASAS 10:38 → Y3W 13:52 → Y5N 15:28
PROVIDERS: ADMIT Allergy & Immunology; ATTEND Psychiatry & Neurology Pain Medicine
PROC: HZ42ZZZ Group Counseling for Substance Abuse Treatment, Cognitive-Behavioral (ICD-10-PCS; principal; 2023-05-18)
DX: F10.20 Alcohol dependence, uncomplicated (principal); F41.9 Anxiety disorder, unspecified; M54.50 Low back pain, unspecified; G89.29 Other chronic pain; Z87.81 Personal history of (healed) traumatic fracture; Z59.00 Homelessness unspecified
CPT/HCPCS: 36415; 80053; 81003; 85027; 86780; 86803; 87389; 87635; 87811